=== PATIENT | female | born 1975 | race Hispanic/Latino ===

== ENCOUNTER → 2023-04-15 | Emergency (ER) | payer SELFPAY ==
[~2023-04-15] MED LIST: CEFTRIAXONE 1000 MG/VIAL ONE; KETOROLAC 30 MG/ML INJ ONE; METHYLPREDNISOLONE 125 MG INJ ONE; NA CHLORIDE 0.9% 1,000 ML ONE; ONDANSETRON 4 MG/2 ML VIAL ONE; levoFLOXacin 250 MG TAB ONE; predniSONE 20 MG TAB ONE
[2023-04-15 10:53] LABS: Absolute Lymphocytes (CBC) 2.4 K/uL (0.7-4.9); Hematocrit 38.2 % (36.0-45.0); MPV 10.3 fL (7.6-11.3); Platelets 195 thou/uL (152-406); RBC Red Blood Cell Count 4.44 M/uL (3.86-4.86)
--- NOTE | 2023-04-15 10:55 | RAD REPORT ---
EXAM DESCRIPTION: CT - Head Brain Wo Cont - 04/15/2023 10:30 am CLINICAL HISTORY: HEADACHE COMPARISON: No comparisons TECHNIQUE: Noncontrast head CT images were obtained without IV contrast. Multiplanar reformats were generated and reviewed. All CT scans are performed using dose optimization technique as appropriate and may include automated exposure control or mA/KV adjustment according to patient size. FINDINGS: No intracranial hemorrhage, mass, or edema. Midline structures are unremarkable. Normal ventricular caliber for age. Barajas-white matter differentiation is preserved, without evidence of acute infarct. No abnormal extra- axial fluid collections. Mastoid air cells and visualized portions of the paranasal sinuses are clear. No acute bony findings. IMPRESSION: No evidence of an acute intracranial process.
[2023-04-15 10:59] LABS: Specific Gravity 1.023 (1.005-1.030)
[2023-04-15 11:04] LABS: Specific Gravity 1.023 (1.005-1.030); Urine Bacteria 20-50 /HPF (<20); Urine Bilirubin NEGATIVE (Negative); Urine Blood Negative (Negative); Urine Clarity Extremely Turbid (Clear); Urine Color Yellow (Yellow); Urine Glucose NEGATIVE (Negative); Urine Mucus 1+ /HPF (None Seen); Urine Protein TRACE (Negative); Urine Urobilinogen Normal (Normal)
[2023-04-15 11:09] LABS: Albumin 3.3 g/dL (3.4-5.0); Bilirubin Total 0.4 mg/dL (0.2-1.0); C-Reactive Protein 3.01 mg/L (<3.00); Potassium 3.8 mEq/L (3.5-5.1); Protein, Total 7.1 g/dL (6.4-8.2)
--- NOTE | 2023-04-15 11:22 | EDPHYS ---
Physician Documentation [facility] Name: Zara Foley Age: 47 yrs Sex: Female : 1975 Arrival Date: 04/15/2023 Time: 09:02 Bed 15 Private MD: GRACE Physician Perez Ritchie HPI: 04/15 10:44 This 47 yrs old Female presents to ER via Ambulatory with complaints of Arm araseli Pain, Back Pain. 10:44 This 47 yrs old Female presents to ER via Ambulatory with complaints of Arm araseli Pain, Back Pain. 10:44 The patient or guardian complains of decreased range of motion, pain. The complaints araseli affect the right wrist, left wrist. Context: The problem was sustained at an unknown location. Onset: The symptoms/episode began/occurred 7 day(s) ago. Treatment prior to arrival includes: no previous treatment. Modifying factors: The symptoms are alleviated by nothing. the symptoms are aggravated by nothing. Associated signs and symptoms: Pertinent positives: pain, of the face, scalp, right arm, left arm, right leg and left leg. Severity of symptoms: At their worst the symptoms were mild, in the emergency department the symptoms are unchanged. The patient has not experienced similar symptoms in the past. Historical: - Allergies: 09:46 No Known Allergies; kc6 - PMHx: 09:46 Arthritis; kc6 - Immunization history:: Adult Immunizations up to date. - Social history:: Smoking status: Patient denies any tobacco usage or history of. - Family history:: not pertinent. ROS: 10:44 Constitutional: Negative for fever, chills, and weight loss, Eyes: Negative for injury, araseli pain, redness, and discharge, ENT: Negative for injury, pain, and discharge, Neck: Negative for injury, pain, and swelling, Cardiovascular: Negative for chest pain, palpitations, and edema, Respiratory: Negative for shortness of breath, cough, wheezing, and pleuritic chest pain, Abdomen/GI: Negative for abdominal pain, nausea, vomiting, diarrhea, and constipation, Back: Negative for injury and pain, : Negative for injury, bleeding, discharge, and swelling, MS/Extremity: Negative for injury and deformity, Skin: Negative for injury, rash, and discoloration, Neuro: Negative for headache, weakness, numbness, tingling, and seizure, Psych: Negative for depression, anxiety, suicide ideation, homicidal ideation, and hallucinations, Allergy/Immunology: Negative for hives, rash, and allergies, Endocrine: Negative for neck swelling, polydipsia, polyuria, polyphagia, and marked weight changes, Hematologic/Lymphatic: Negative for swollen nodes, abnormal bleeding, and unusual bruising, Exam: 10:44 Constitutional: This is a well developed, well nourished patient who is awake, alert, araseli and in no acute distress. Head/Face: Normocephalic, atraumatic. Eyes: Pupils equal round and reactive to light, extra-ocular motions intact. Lids and lashes normal. Conjunctiva and sclera are non-icteric and not injected. Cornea within normal limits. Periorbital areas with no swelling, redness, or edema. ENT: Nares patent. No nasal discharge, no septal abnormalities noted. Tympanic membranes are normal and external auditory canals are clear. Oropharynx with no redness, swelling, or masses, exudates, or evidence of obstruction, uvula midline. Mucous membranes moist. Neck: Trachea midline, no thyromegaly or masses palpated, and no cervical lymphadenopathy. Supple, full range of motion without nuchal rigidity, or vertebral point tenderness. No Meningismus. Chest/axilla: Normal chest wall appearance and motion. Nontender with no deformity. No lesions are appreciated. Cardiovascular: Regular rate and rhythm with a normal S1 and S2. No gallops, murmurs, or rubs. Normal PMI, no JVD. No pulse deficits. Respiratory: Lungs have equal breath sounds bilaterally, clear to auscultation and percussion. No rales, rhonchi or wheezes noted. No increased work of breathing, no retractions or nasal flaring. Abdomen/GI: Soft, non-tender, with normal bowel sounds. No distension or tympany. No guarding or rebound. No evidence of tenderness throughout. Back: No spinal tenderness. No costovertebral tenderness. Full range of motion. Skin: Warm, dry with normal turgor. Normal color with no rashes, no lesions, and no evidence of cellulitis. MS/ Extremity: Pulses equal, no cyanosis. Neurovascular intact. Full, normal range of motion. Neuro: Awake and alert, GCS 15, oriented to person, place, time, and situation. Cranial nerves II-XII grossly intact. Motor strength 5/5 in all extremities. Sensory grossly intact. Cerebellar exam normal. Normal gait. Psych: Awake, alert, with orientation to person, place and time. Behavior, mood, and affect are within normal limits. Vital Signs: 09:45 BP 157 / 103; Pulse 86; Resp 16 S; Pulse Ox 100% on R/A; Weight 73.94 kg (R); Height 4 kc6 ft. 10 in. (R); Pain 10/10; 10:54 BP 137 / 89; Pulse 70; Resp 16 S; Pulse Ox 100% on R/A; kc6 09:45 Body Mass Index 34.07 (73.94 kg, 147.32 cm) 6 09:45 Pain Scale: Adult kc6 MDM: 09:09 Patient medically screened. [facility] 10:50 Differential diagnosis: contusion, tendonitis. Data reviewed: vital signs, nurses [facility] notes, lab test result(s), radiologic studies, CT scan. Consideration of Admission/Observation Escalation of care including admission/observation considered. I considered the following discharge prescriptions or medication management in the emergency department Medications were administered in the Emergency Department. See MAR. Independent interpretation of the following test(s) in the Emergency Department CT Scan: My interpretation is ct brain negative. Test considered but Not performed: EKG: no ekg. Historians other than the Patient: Spouse/Significant Other: spouse well informed. Care significantly affected by the following chronic conditions: arthritis. 04/15 10:18 Order name: CBC with Diff; Complete Time: : [facility] 04/15 10:18 Order name: Comprehensive Metabolic Panel; Complete Time: : [facility] 04/15 10:18 Order name: Urinalysis w/ reflexes; Complete Time: : [facility] 04/15 10:18 Order name: PREGU; Complete Time: 11: [facility] 04/15 10:18 Order name: CRP; Complete Time: : [facility] 04/15 11:11 Order name: Urine Culture EDMS 04/15 10:18 Order name: CT Head Brain wo Cont; Complete Time: [facility] Administered Medications: 10:53 Drug: NS 0.9% IV 1000 ml IV at 1 bolus Per protocol; 1000 mL bolus Route: IV; Rate: 1 kc6 bolus; Site: right antecubital; 10:53 Drug: Ketorolac IVP 30 mg IVP once Route: IVP; Site: right antecubital; kc6 10:53 Drug: Ondansetron IVP 4 mg IVP once; over 2 minutes Route: IVP; Site: right antecubital;kc6 10:54 Drug: MethylPrednisoLONE IVP 125 mg IVP once Route: IVP; Site: right antecubital; kc6 10:54 Drug: predniSONE PO 40 mg PO once Route: PO; kc6 11:53 Drug: Rocephin IV 1 grams IV at per protocol once; Given slow IV push per pharmacy kc6 instructions Route: IV; Rate: per protocol; Site: right antecubital; 11:53 Drug: LevOfloxacin PO 500 mg PO once Route: PO; kc6 Disposition Summary: 04/15/23 11:21 Discharge Ordered Notes: Location: Home araseli Problem: new araseli Symptoms: have improved araseli Condition: Stable araseli Diagnosis - Polyarthritis, unspecified araseli - Other specified arthritis araseli - UTI/ Urinary tract infection, site not specified araseli Followup: araseli - With: Private Physician - When: 2 - 3 days - Reason: Recheck today's complaints, Continuance of care, Re-evaluation by your physician Followup: araseli - With: Joseph Dempsey DO - When: 2 - 3 days - Reason: Recheck today's complaints, Continuance of care, Re-evaluation by your physician Discharge Instructions: - Discharge Summary Sheet araseli - Arthritis araseli - Urinary Tract Infection, Adult araseli - Urinary Tract Infection, Adult, [id number] - Arthritis, [id number] [facility] Forms: - Medication Reconciliation Form [facility] - Thank You Letter [facility] - Antibiotic Education [facility] - Prescription Opioid Use [facility] - Patient Portal Instructions [facility] - Leadership Thank You Letter [facility] Prescriptions: - Diclofenac Sodium 75 mg Oral tablet, delayed release (enteric coated) - take 1 tablet ORAL route 2 times per day; 20 tablet; Refills: 0, Product [facility] Selection Permitted - Medrol ([place]) 4 mg Oral Tablets, Dose Pack - take 1 tablet ORAL route as directed - follow package instructions; 1 packet; araseli Refills: 0, Product Selection Permitted - levofloxacin 250 mg Oral tablet - take 1 tablet ORAL route once daily; 7 tablet; Refills: 0, Product Selection araseli Permitted Signatures: Dispatcher [employer] EDMS Chau, Perez, MD MD araseli Hickey, Denia, RN RN kc6
--- NOTE | 2023-04-15 11:22 | ER ---
Nurse's Notes [facility] Name: Zara Foley Age: 47 yrs Sex: Female : 1975 Arrival Date: 04/15/2023 Time: 09:02 Bed 15 Private MD: Diagnosis: Polyarthritis, unspecified;Other specified arthritis;UTI/ Urinary tract infection, site not specified Presentation: 04/15 09:45 Chief complaint: Patient states: YADIRA arm and leg pain x1 mo, 12/24. reports feeling kc6 swollen and generally week. states her doctors think it might be arthritis. Coronavirus screen: At this time, the client does not indicate any symptoms associated with coronavirus-19. Ebola Screen: No symptoms or risks identified at this time. Initial Sepsis Screen: Does the patient meet any 2 criteria? No. Patient's initial sepsis screen is negative. Does the patient have a suspected source of infection? No. Patient's initial sepsis screen is negative. Risk Assessment: Do you want to hurt yourself or someone else? Patient reports no desire to harm self or others. Onset of symptoms was April 15, 2023. 09:45 Method Of Arrival: Ambulatory 6 09:45 Acuity: FROYLAN 4 kc6 Triage Assessment: 09:46 General: Appears in no apparent distress. comfortable, well groomed, well developed, kc6 Behavior is calm, cooperative, appropriate for age. Pain: Complains of pain in right hand, left hand, right foot, left foot, right arm, left arm, right leg and left leg. EENT: No signs and/or symptoms were reported regarding the EENT system. Neuro: Level of Consciousness is awake, alert, obeys commands, Oriented to person, place, time, situation, Appropriate for age. Cardiovascular: Capillary refill < 3 seconds. Respiratory: Airway is patent Trachea midline Respiratory effort is even, unlabored, Respiratory pattern is regular, symmetrical. GI: No signs and/or symptoms were reported involving the gastrointestinal system. : No signs and/or symptoms were reported regarding the genitourinary system. Derm: No signs and/or symptoms reported regarding the dermatologic system. Skin is intact, is healthy with good turgor, Skin is pink, warm \T\ dry. Musculoskeletal: No signs and/or symptoms reported regarding the musculoskeletal system. Circulation, motion, and sensation intact. Capillary refill < 3 seconds, Range of motion: intact in all extremities. Historical: - Allergies: 09:46 No Known Allergies; kc6 - PMHx: 09:46 Arthritis; kc6 - Immunization history:: Adult Immunizations up to date. - Social history:: Smoking status: Patient denies any tobacco usage or history of. - Family history:: not pertinent. Screenin:48 [facility] ED Fall Risk Assessment (Adult) History of falling in the last 3 months, kc6 including since admission No falls in past 3 months (0 pts) Confusion or Disorientation No (0 pts) Intoxicated or Sedated No (0 pts) Impaired Gait No (0 pts) Mobility Assist Device Used No (0 pt) Altered Elimination No (0 pt) Score/Fall Risk Level 0 - 2 = Low Risk. Abuse screen: Denies threats or abuse. Denies injuries from another. Nutritional screening: No deficits noted. Tuberculosis screening: No symptoms or risk factors identified. Assessment: 09:48 Reassessment: please see triage assessment. kc6 Vital Signs: 09:45 BP 157 / 103; Pulse 86; Resp 16 S; Pulse Ox 100% on R/A; Weight 73.94 kg (R); Height 4 kc6 ft. 10 in. (R); Pain 10/10; 10:54 BP 137 / 89; Pulse 70; Resp 16 S; Pulse Ox 100% on R/A; kc6 09:45 Body Mass Index 34.07 (73.94 kg, 147.32 cm) kc6 09:45 Pain Scale: Adult kc6 ED Course: 09:06 Patient arrived in ED. mg5 09:28 Perez Ritchie MD is Attending Physician. araseli 09:45 Denia Hickey RN is Primary Nurse. kc6 09:46 Triage completed. kc6 09:46 Arm band placed on. kc6 09:48 Patient has correct armband on for positive identification. Placed in gown. Bed in low kc6 position. Call light in reach. Side rails up X 1. Adult w/ patient. Client placed on continuous cardiac and pulse oximetry monitoring. NIBP monitoring applied. 09:48 Patient maintains SpO2 saturation greater than 95% on room air. kc6 10:30 CT Head Brain wo Cont In Process Unspecified. EDMS 10:54 Inserted saline lock: 20 gauge in right antecubital area, using aseptic technique. kc6 Blood collected. 11:21 Joseph Dempsey DO is Referral Physician. [facility] 11:57 No provider procedures requiring assistance completed. IV discontinued, intact, kc6 bleeding controlled, No redness/swelling at site. Pressure dressing applied. Administered Medications: 10:53 Drug: NS 0.9% IV 1000 ml IV at 1 bolus Per protocol; 1000 mL bolus Route: IV; Rate: 1 kc6 bolus; Site: right antecubital; 10:53 Drug: Ketorolac IVP 30 mg IVP once Route: IVP; Site: right antecubital; kc6 10:53 Drug: Ondansetron IVP 4 mg IVP once; over 2 minutes Route: IVP; Site: right antecubital;kc6 10:54 Drug: MethylPrednisoLONE IVP 125 mg IVP once Route: IVP; Site: right antecubital; kc6 10:54 Drug: predniSONE PO 40 mg PO once Route: PO; kc6 11:53 Drug: Rocephin IV 1 grams IV at per protocol once; Given slow IV push per pharmacy kc6 instructions Route: IV; Rate: per protocol; Site: right antecubital; 11:53 Drug: LevOfloxacin PO 500 mg PO once Route: PO; kc6 Medication: 11:59 VIS not applicable for this client. kc6 Outcome: 11:21 Discharge ordered by . [facility] 11:57 Discharged to home ambulatory, with significant other, kc6 11:57 Condition: good 11:57 Discharge instructions given to patient, Instructed on discharge instructions, follow up and referral plans. medication usage, Demonstrated understanding of instructions, follow-up care, medications, Prescriptions given X 3, 12:00 Patient left the ED. kc6 Signatures: Dispatcher [employer] EDNM Perez Ritchie MD MD cha Campbell, Kaitlyn RN RN [email or web address] Deborah Johns mg5
[2023-04-15 18:00] VITALS: BP 137/89; O2SAT 100
== END ==
LOC: ER 09:02
DX: M13.0 Polyarthritis, unspecified (principal); N39.0 Urinary tract infection, site not specified
CPT/HCPCS: 36415; 70450; 80053; 81001; 81025; 85025; 86140; 87086; 87088; J0696; J2405; J2930; J7030; J7512